=== PATIENT | male | born 1955 | race African-American/Black ===

== ENCOUNTER 2019-11-04 00:32 | Emergency (ER) | payer OTHER ==
[~2019-11-04] VITALS: Ht 195.6 cm; Wt 134.0 kg
[2019-11-04] MEDS ORDERED: SODIUM CHLORIDE 0.9% 1,000 ML IV ONE (03:50)
[2019-11-04] MEDS ORDERED: KETOROLAC 30MG/ML VIAL IV STA (03:50)
[2019-11-04] MEDS ORDERED: ONDANSETRON HCL 4MG/2ML INJ IV STA (03:50)
[2019-11-04 04:19] LABS: CHLORIDE 108 mEq/L (98-107)
[2019-11-04 04:23] LABS: BASOPHILS % 0.7 % (0.0-2.0); EOSINOPHILS % 1.9 % (0.0-5.0); HEMATOCRIT. 35.5 % (42.0-52.0); HEMOGLOBIN. 11.7 g/dL (14.0-18.0); LYMPHOCYTES % 25.8 % (20.0-50.0); MEAN CORPUSCULAR HEMOGLOBIN 30.7 pg (28.0-32.0); MEAN CORPUSCULAR VOLUME 92.9 fL (80.0-94.0); MEAN PLATELET VOLUME 9.1 fl (7.4-10.4); MONOCYTES % 11.5 % (2.0-8.0); NEUTROPHILS % 60.1 % (40.0-76.0); PLATELET 193 x1000/uL (130-400); RED BLOOD CELL COUNT 3.82 mill/uL (4.7-6.1); RED CELL DISTRIBUTION WIDTH 13.6 % (11.6-14.6)
[2019-11-04 06:00] VITALS: BP 118/74
== END 2019-11-04 06:58 | disposition home or self-care (01) ==
LOC: ER 00:32
DX: R10.9 Unspecified abdominal pain (principal); Z85.9 Personal history of malignant neoplasm, unspecified; Z88.0 Allergy status to penicillin; Z88.6 Allergy status to analgesic agent
CPT/HCPCS: 36415; 74021; 80053; 83690; 83880; 84484; 85025; 93005; 96361; 96374; 96375; 99285; J1885; J2405; J7030